=== PATIENT | female | born 1990 | race Caucasian/White ===

== ENCOUNTER → 2022-03-23 | Outpatient (CLI) | payer OTHER, SELFPAY ==
--- NOTE | 2022-03-23 10:05 | TONS_PTH ---
PATIENT: ANDREA KHAN LOC: [facility] U#:[id number] AGE/SX: 31/F ROOM: RE03/23/[address]: Dr. Hector Mckeon MD : [id number] BED: DIS: 03/23/2022 SPEC #: [id number] RECD: 03/23/22 14:54 STATUS: ROJELIO STEVE #: [id number] SOLANGE: 03/23/22 10:[address]: Hector Mckeon DEPT: SURGICAL PATHOLOGY RECD BY: Kim Scruggs ENTERED: 03/24/22 08:00 SP TYPE: TONSILS OTHR DR: DARRELL Tissues: Tonsil, NOS Procedures: Surgery Specimen Level III HEADER OPERATION: Tonsillectomy PRE-OP DIAGNOSIS: Hypertrophy of tonsils TISSUE SUBMITTED: Bilateral tonsils, right marked with pin MICROSCOPIC DIAGNOSIS Bilateral tonsils, Tonsillectomy: Reactive lymphoid hyperplasia. Focal actinomyces colonizataion. /SJ 03/25/22 MICROSCOPIC DESCRIPTION Slides are reviewed. GROSS DESCRIPTION Received in formalin labeled with the patient's name and designated tonsils and adenoids - pin/tie on right. The specimen consists of two tonsils that in aggregate weigh 12.5 gm. The right tonsil has a pin on it. The right tonsil measures 3 x 2 x 2.5 cm and the left tonsil measures 3.5 x 2 x 2 cm. Both tonsils are similar in appearance. The external surfaces are pink-arias, smooth, glistening and somewhat lobulated. Focally they are hemorrhagic, granular and bear cautery artifact. Serial cross sections through the tonsils reveal normal tonsillar architecture. Generator Rebuilder sections are submitted as follows: 1 - right tonsil, 2 - left tonsil. / SJ:cc 03/24/2022 TC:5 [facility]: [id number] x2
== END | disposition home or self-care (01) ==
PROVIDERS: Visit Provider Otolaryngology
DX: J35.1 Hypertrophy of tonsils (principal)
CPT/HCPCS: 88304

== ENCOUNTER → 2022-10-27 | Outpatient (CLI) | payer OTHER, SELFPAY ==
[2022-10-30 15:08] LABS: Clam <0.10 kU/L (Class 0); Codfish <0.10 kU/L (Class 0); Corn <0.10 kU/L (Class 0); Egg, White <0.10 kU/L (Class 0); Milk (Cow) <0.10 kU/L (Class 0); Peanut <0.10 kU/L (Class 0); SCALLOP <0.10 kU/L (Class 0); SESAME SEED <0.10 kU/L (Class 0); Shrimp <0.10 kU/L (Class 0); Soybean <0.10 kU/L (Class 0); Walnut, (Food) <0.10 kU/L (Class 0); Wheat <0.10 kU/L (Class 0)
== END | disposition home or self-care (01) ==
LOC: LAB 12:04
PROVIDERS: Referring Provider Otolaryngology; Visit Provider Otolaryngology
DX: T78.40XA Allergy, unspecified, initial encounter (principal)
CPT/HCPCS: 36415; 86003